=== PATIENT | male | born 1985 | race Caucasian/White ===

== ENCOUNTER 2023-01-16 10:45 | Emergency (ER) | payer OTHER, SELFPAY ==
[2023-01-16 10:53] VITALS: BP 138/83; PULSE 88; RESP 16; TEMP 35.6; O2SAT 100
--- NOTE | 2023-01-16 11:11 | W.ED.BACK ---
HPI - Back Pain/Injury General: Chief Complaint: Back Pain/Injury Stated Complaint: pulled muscle in back Time Seen by Provider: 01/16/23 10:49 History of Present Illness: Patient is a 37-year-old male who comes to the ED with back pain. Patient injured back 2 days ago. He says he was bending over to lift a heavy amount of lumber and felt a pull in the left side of his lower back. Denies any other trauma or fall to cause back pain. Pain rated and 8 out of 10 and worsens with certain movements of his torso. Denies any pain radiating down his legs. Denies any leg weakness, bladder or bowel incontinence or pelvic anesthesia. Associated symptoms: Deny abdominal pain, chills, dysuria, fatigue, fever(s), hematuria, nausea or vomiting Review of Systems Const: Denies: fever(s), chills or fatigue Eyes: Denies: change in vision or eye discomfort ENMT: Denies: throat pain, odynophagia, nasal discharge or nasal congestion Card: Denies: chest pain, palpitations, edema, swelling of feet/ankles, dyspnea on exertion or orthopnea Resp: Denies: dyspnea, productive cough or non-productive cough GI: Denies: abdominal pain, nausea, vomiting, diarrhea, constipation or hematochezia : Denies: flank pain, difficulty urinating, dysuria or hematuria Musc: Reports: back pain; Denies: neck pain or extremity swelling Skin/Breast: Denies: rash or new lesions Neuro: Denies: headache(s), numbness in extremities or weakness in extremities [facility] ED PFSH: Medical History (Updated 01/17/23 @ 07:14 by FABIOLA Maldonado) No pertinent family history Surgical History (Updated 01/17/23 @ 07:14 by FABIOLA Maldonado) No pertinent past surgical history Social History Smoking and tobacco status: current every day smoker (chew) Physical Exam Const: COMMON NORMALS: no acute distress, patient oriented x3, healthy appearing and alert HENMT: COMMON NORMALS: normocephalic HEAD & SCALP: normocephalic MOUTH: Normal oral and palatal mucosa present THROAT: posterior oropharynx normal and uvula midline Neck/C-Spine: COMMON NORMALS: supple GENERAL: Yes normal visual inspection Resp: COMMON NORMALS: normal respiratory effort, No retractions, No use of accessory muscles and clear to auscultation bilaterally AUSCULTATION: clear to auscultation bilaterally Cardio: COMMON NORMALS: regular rate, regular rhythm, S1 normal heart sound present, S2 normal heart sound present, No gallops present (Cardio), No clicks present (Cardio), No murmurs present (Cardio) and Peripheral pulses 2+ throughout RATE: regular rate RHYTHM: regular rhythm HEART SOUNDS: S1 normal heart sound present and S2 normal heart sound present PERIPHERAL PULSES: Peripheral pulses 2+ throughout GI: COMMON NORMALS: Normal to inspection, nondistended, normoactive bowel sounds present, Soft to palpation, non-tender and no masses PALPATION: Yes Soft to palpation : COMMON NORMALS: Yes no CVA tenderness BLADDER/KIDNEY EXAM: Yes no CVA tenderness Back/Pelvis: COMMON NORMALS: no CVA tenderness LUMBAR SPINE/LOWER BACK: Yes paraspinal muscle tenderness Lumbar paraspinal muscle tenderness: left left lumbar paraspinal muscle tenderness: L3, L4 and L5 Extremity: COMMON NORMALS: normal to inspection Neuro: COMMON NORMALS: patient oriented x3 SENSORIUM/ORIENTATION: Yes alert GAIT: Yes Normal gait present Skin: GENERAL SKIN EXAM: dry skin Course Vital Signs: Vital signs: Vital Signs Temperature 96.0 F L 01/16/23 10:53 Pulse Rate 88 01/16/23 10:53 Respiratory Rate 16 01/16/23 10:53 Blood Pressure 138/83 01/16/23 10:53 Pulse Oximetry 100 01/16/23 10:53 Oxygen Delivery Me thod 01/16/23 10:53 MDM - Back Pain/Injury Medical Decision Making Patient is a 37-year-old male who comes to the ED with back pain. Patient injured back 2 days ago. He says he was bending over to lift a heavy amount of lumber and felt a pull in the left side of his lower back. Denies any other trauma or fall to cause back pain. Pain rated and 8 out of 10 and worsens with certain movements of his torso. Denies any pain radiating down his legs. Denies any leg weakness, bladder or bowel incontinence or pelvic anesthesia. Vitals are stable. Patient has L3-L4 and L5 left lumbar paraspinal muscle tenderness. Rest of exam is benign. Patient was given dose of Toradol, Norflex and steroid here in the ED. He was stable for discharge home and diagnosed with strain of lumbar region. He was sent home with a prescription for a muscle relaxer and NSAID and steroid. Follow-up with PCP in the next week for reevaluation. Return to ED precautions given. Patient understood and agreed with plan. Discharge Plan Discharge Patient Disposition: Home Clinical Impression: Strain of lumbar region Qualifiers: Encounter type: initial encounter Qualified Code(s): S39.012A - Strain of muscle, fascia and tendon of lower back, initial encounter Condition: Stable Prescriptions: New cyclobenzaprine 10 mg tablet 10 mg PO BID PRN (Reason: muscle spasm) Qty: 20 0RF prednisone 20 mg tablet 20 mg PO BID 3 Days Qty: 6 0RF Naprosyn 500 mg tablet 500 mg PO BID PRN (Reason: pain) Qty: 20 0RF No Action amoxicillin-pot clavulanate [Augmentin] 875-125 mg tablet 1 tab PO Q12H 7 Days Qty: 14 0RF methylprednisolone [Medrol ([place])] 4 mg tablets,dose pack See Rx Instructions PO PER PKG DIR 6 Days Qty: 21 0RF Rx Instructions: PO PER PKG DIR Discharge Orders: Discharge ED (Routine); Ordered 01/16/23 Ordered By: Jose Luis Hogan Referrals: Sourav Christian DO [Primary Care Provider] - Discharge Diet: Regular Discharge Activity: Increase activity as tolerated Patient Instructions: Low Back Strain (ED), Acute Low Back Pain (ED) Activity Restrictions/Additional Instructions: Follow-up with medical provider as directed in the next 7 to 10 days for reevaluation. Apply cold pack on lower back for approximately 10 to 15 minutes at a time multiple times a day to help with symptoms. Stretch lower back muscles daily. Limit any heavy lifting (under 15lbs) for the next week to allow for healing. Take medications as prescribed. Return to the ER or your medical provider if condition worsens. Please read and understand discharge instructions. Thank you for choosing [facility] for your healthcare needs today. Please realize this is an emergency room and that we are providing you with a medical screening exam and this may not be complete and all inclusive of all the testing and or work up that you may need to determine your ailment or severity of your illness. It is very important that you follow up as instructed or that you return to the Emergency Department should you have concerns or if your condition changes or worsens in any way. Coding Level of Care Code ED [employer] for Daniella Moran
[2023-01-16] MEDS: dexamethasone 10 mg/mL INJ IM (11:40)
[2023-01-16] MEDS: orphenadrine 30 mg/mL Inj 2 mL 60 MG IM (11:40)
[2023-01-16] MEDS: ketorolac 60 mg/2 mL INJ IM (11:40)
== END 2023-01-16 11:45 | disposition home or self-care (01) ==
PROVIDERS: Emergency Provider Physician Assistant; PCP Family Medicine
DX: S39.012A Strain of muscle, fascia and tendon of lower back, initial encounter (principal); F17.220 Nicotine dependence, chewing tobacco, uncomplicated; X50.0XXA Overexertion from strenuous movement or load, initial encounter
CPT/HCPCS: 96372; 99284; J1100; J1885; J2360